=== PATIENT | female | born 1945 ===

== ENCOUNTER 2019-01-27 11:59 | Outpatient (CLI) | payer MEDICARE ==
--- NOTE | 2019-01-27 12:52 | RAD ---
PA AND LATERAL CHEST: History: Shortness of breath. History of multiple myeloma. Comparison: 02-12-11, 05-08-15 FINDINGS: The heart size is enlarged. Mediastinal structures appear unremarkable. The lungs show some scarring in the right base. No focal infiltrative process. No lytic bone lesions are noted. IMPRESSION: Cardiomegaly with chronic lung change. POS: [facility]
== END 2019-01-27 12:00 | disposition home or self-care (01) ==
LOC: BICRAD 11:59
PROVIDERS: ATTEND Internal Medicine Hematology & Oncology
DX: C79.51 Secondary malignant neoplasm of bone (principal); C90.01 Multiple myeloma in remission; I51.7 Cardiomegaly
CPT/HCPCS: 71046